=== PATIENT | female | born 1995 | race Caucasian/White ===

== ENCOUNTER → 2020-03-15 11:09 | Outpatient (BNVA) | payer BC, SELFPAY | PROVIDERS: Family Provider Nurse Practitioner Family; PCP Nurse Practitioner Family; Visit Provider Family Medicine | DX: S91.111A Laceration without foreign body of right great toe without damage to nail, initial encounter (principal); X58.XXXA Exposure to other specified factors, initial encounter | CPT/HCPCS: 73660 ==

== ENCOUNTER → 2020-12-19 14:39 | Outpatient (BNVA) | payer BC, SELFPAY | PROVIDERS: Family Provider Nurse Practitioner Family; PCP Nurse Practitioner Family; Visit Provider Nurse Practitioner Family | DX: Z20.822 Contact with and (suspected) exposure to COVID-19 (principal) | CPT/HCPCS: 87635 ==

== ENCOUNTER → 2021-02-16 16:32 | Outpatient (BNVA) | payer BC, SELFPAY | PROVIDERS: Family Provider Nurse Practitioner Family; PCP Nurse Practitioner Family; Visit Provider Family Medicine | DX: Z20.822 Contact with and (suspected) exposure to COVID-19 (principal) | CPT/HCPCS: 87635 ==

== ENCOUNTER 2021-11-11 15:22 | Inpatient (IN) | payer SELFPAY ==
[2021-11-11 15:25] VITALS: BMI 19.3
--- NOTE | 2021-11-11 15:32 | W.ED.PSYCHS ---
HPI - Psych General: Chief Complaint: Psychiatric Symptoms Stated Complaint: 96 HR HOLD Time Seen by Provider: 11/11/21 15:24 Source: patient and police Mode of arrival: other (police custody ) Limitations: no limitations History of Present Illness: Patient is a 25-year-old female who arrives to the ED today in police custody with a signed affidavit. According to the police detention attendant patient was [facility] today. She apparently was arrested for pointing a firearm at her ex- and violating an order of protection against their shared children. After she was released from [facility] the officer was speaking to her and she told him she was depressed and spoke about putting a gun in her mouth . Patient tells me she is not suicidal or homicidal. He tells me she has a meth addict and wants to get help for her methamphetamine addiction. She did reach out to a facility in [place] and stated she was told that they would have a bed for her she did not have a ride. Patient admits to marijuana use. No other drug use. Rare alcohol use. Reports her therapist in [facility] has diagnosed her with PTSD, manic/depression, and possible schizophrenia but she is not on any medications for these conditions. Exacerbating factors: drug use Context: recent drug abuse Associated symptoms: Reports depression; Deny homicidal ideation or suicidal ideation Treatments prior to arrival: none Review of Systems Const: Denies: fever(s) or chills Card: Denies: chest pain, palpitations, lightheadedness or syncope Resp: Denies: dyspnea GI: Denies: abdominal pain, nausea, vomiting or diarrhea Skin/Breast: Denies: rash Neuro: Denies: headache(s) Psych: Reports: anxiety, depression and irritability; Denies: suicidal ideation or homicidal ideation [facility] ED PFSH: Social History Smoking and tobacco status: current every day smoker cigarettes Alcohol intake: never Physical Exam Const: COMMON NORMALS: no acute distress, patient oriented x3, alert and well nourished GENERAL APPEARANCE: cooperative ORIENTATION/CONSCIOUSNESS: Yes oriented to person, Yes oriented to place and Yes oriented to time Resp: COMMON NORMALS: normal respiratory effort and clear to auscultation bilaterally AUSCULTATION: clear to auscultation bilaterally Cardio: COMMON NORMALS: regular rate and regular rhythm RATE: regular rate RHYTHM: regular rhythm Neuro: KASHIF COMA SCALE: document GCS findings [place] coma scale eye opening: Spontaneous [place] coma scale verbal response: Orientated Kashif coma scale motor response: Obey commands Kashif coma scale total score: 15 COMMON NORMALS: patient oriented x3 SENSORIUM/ORIENTATION: Yes alert, Yes oriented to person, Yes oriented to place and Yes oriented to time Psych: COMMON NORMALS: mental status grossly normal, Normal thought process present, cooperative, normal affect, speech normal and denies suicidal ideation APPEARANCE: Yes disheveled ATTITUDE: Yes calm ACTIVITY/MOTOR BEHAVIOR: Yes psychomotor agitation and Yes Avoids eye contact (attititude/behavior) SPEECH: Yes normal speech MOOD & AFFECT: Yes euthymic mood THOUGHT PROCESS: Normal thought process present THOUGHT CONTENT: Yes Normal thought content present ATTENTION/CONCENTRATION: Yes attention grossly intact MEMORY/COGNITION: Yes memory grossly intact and Yes cognition grossly intact INSIGHT: Good insight present (Psych) JUDGEMENT: Good judgement present (Psych) Skin: NARRATIVE SKIN EXAM: multiple picked sores/scabs most likely secondary to chronic methamphetamine abuse Course Consultations: Consultation #1: Dr. Beck-accepts to NPU Vital Signs: Vital signs: Vital Signs Temperature 98.1 F 11/11/21 16:23 Pulse Rate 79 11/11/21 16:23 Respiratory Rate 79 H 11/11/21 16:23 Blood Pressure 139/87 11/11/21 16:23 Pulse Oximetry 99 11/11/21 16:23 MDM - Psych Medical Decision Making Patient will be an admit to NPU per Dr. Beck. Affidavit on chart. Lab Data : 11/11/21 16:20 11/11/21 16:20 Laboratory Results WBC 8.3 10^3/uL (4.0-10.0) 11/11/21 16:20 RBC 4.51 10^6/uL (4.1-5.3) 11/11/21 16:20 Hgb 13.2 g/dL (11.5-15.3) 11/11/21 16:20 Hct 40.8 % (37.0-47.0) 11/11/21 16:20 MCV 90.5 fl (81-99) 11/11/21 16:20 MCH 29.3 pg (28.0-34.0) 11/11/21 16:20 MCHC 32.4 g/dL (30.0-36.0) 11/11/21 16:20 RDW 13.3 % (12.1-15.1) 11/11/21 16:20 Plt Count 262 10^3/cmm (130-400) 11/11/21 16:20 MPV 10.8 fL (7.4-10.4) H 11/11/21 16:20 Neut % (Auto) 61.0 % 11/11/21 16:20 Lymph % (Auto) 27.4 % 11/11/21 16:20 [place] % (Auto) 9.6 % 11/11/21 16:20 Eos % (Auto) 1.5 % 11/11/21 16:20 Baso % (Auto) 0.4 % 11/11/21 16:20 Neut # (Auto) 5.05 10^3/uL (1.8-7.7) 11/11/21 16:20 Lymph # (Auto) 2.3 10^3/uL (0.8-4.8) 11/11/21 16:20 [place] # (Auto) 0.8 10^3/uL (0.2-0.9) 11/11/21 16:20 Eos # (Auto) 0.1 10^3/uL (0.0-0.8) 11/11/21 16:20 Baso # (Auto) 0.0 10^3/uL (0.0-0.1) 11/11/21 16:20 Nucleated RBC % (auto) 0 % 11/11/21 16: Nucleated RBCs # 0.0 /100WBC 11/11/21 16:20 Sodium 136 mmol/L (136-145) 11/11/21 16:20 Potassium 3.7 mmol/L (3.5-5.1) 11/11/21 16:20 Chloride 101 mmol/L (98-107) 11/11/21 16:20 Carbon Dioxide 26 mmol/L (22-29) 11/11/21 16:20 Anion Gap 12.7 (5-19) 11/11/21 16:20 BUN 10 mg/dL (6-20) 11/11/21 16:20 Creatinine 0.8 mg/dL (0.5-0.9) 11/11/21 16:20 Glucose 98 mg/dL (65-115) 11/11/21 16:20 Calcium 8.9 mg/dL (8.5-10.5) 11/11/21 16:20 Total Bilirubin 0.4 mg/dL (0.15-1.2) 11/11/21 16:20 AST 18 U/L (0-32) 11/11/21 16:20 ALT 14 U/L (0-33) 11/11/21 16:20 Alkaline Phosphatase 71 IU/L (35-105) 11/11/21 16:20 Total Protein 6.6 g/dL (6.6-8.7) 11/11/21 16:20 Albumin 4.4 g/dL (3.5-5.2) 11/11/21 16:20 Globulin 2.2 g/dL (1.3-4.6) 11/11/21 16:20 HCG, Qual Negative (Negative) 11/11/21 16:20 Urine Opiates Screen Negative ng/mL (Negative) 11/11/21 16:03 Ur Barbiturates Screen Negative ng/mL (Negative) 11/11/21 16:03 Ur Phencyclidine Scrn Negative ng/mL (Negative) 11/11/21 16:03 Ur Amphetamines Screen Positive ng/mL (Negative) H 11/11/21 16:03 U Benzodiazepines Scrn Negative ng/mL (Negative) 11/11/21 16:03 Urine Cocaine Screen Negative ng/mL (Negative) 11/11/21 16:03 U Marijuana (THC) Screen Positive ng/mL (Negative) H 11/11/21 16:03 Discharge Plan Discharge Patient Disposition: Admitted As Inpatient Admit Provider: Denton Beck Clinical Impression: Suicidal ideation Condition: Stable Coding Level of Care Code ED Chairperson Anesthesiology for [facility] Fwd Exam Detailed
[2021-11-11] MEDS: ibuprofen 600 mg Tablet PO (16:12)
[2021-11-11 16:19] LABS: Amphetamines Screen Urine Positive (Negative); Barbiturates Screen Urine Negative (Negative); Benzodiazepines Screen Urine Negative (Negative); Cocaine Screen Urine Negative (Negative); Opiate Screen Urine Negative (Negative); PCP Screen Urine Negative (Negative); THC Screen Urine Positive (Negative)
[2021-11-11 16:23] VITALS: BP 139/87; PULSE 79; RESP 79; TEMP 36.7; O2SAT 99
[2021-11-11 16:26] LABS: Basophils % 0.4 %; Eosinophils # 0.1 10^3/uL (0.0-0.8); Eosinophils % 1.5 %; Hematocrit 40.8 % (37.0-47.0); Hemoglobin 13.2 g/dL (11.5-15.3); Lymphocytes # 2.3 10^3/uL (0.8-4.8); Lymphocytes % 27.4 %; Mean Corpuscular HGB Conc 32.4 g/dL (30.0-36.0); Mean Corpuscular Hemoglobin 29.3 pg (28.0-34.0); Mean Corpuscular Volume 90.5 fl (81-99); Mean Platelet Volume 10.8 fL (7.4-10.4); Monocytes # 0.8 10^3/uL (0.2-0.9); Monocytes % 9.6 %; Neutrophils # 5.05 10^3/uL (1.8-7.7); Nucleated Red Blood Cells % 0 %; Platelet Count 262 10^3/cmm (130-400); Red Blood Count 4.51 10^6/uL (4.1-5.3); Red Cell Distribution Width 13.3 % (12.1-15.1); White Blood Count 8.3 10^3/uL (4.0-10.0)
[2021-11-11 16:53] LABS: Alanine Aminotransferase 14 U/L (0-33); Albumin Level 4.4 g/dL (3.5-5.2); Alkaline Phosphatase 71 IU/L (35-105); Anion Gap 12.7 (5-19); Aspartate Amino Transferase 18 U/L (0-32); Blood Urea Nitrogen 10 mg/dL (6-20); Calcium 8.9 mg/dL (8.5-10.5); Carbon Dioxide 26 mmol/L (22-29); Chloride 101 mmol/L (98-107); Globulin 2.2 g/dL (1.3-4.6); Glomerular Filtration Rate 86.7 mL/min (90-130); Glucose 98 mg/dL (65-115); Osmolality Calculated 281 mOsm/kg (285-295); Potassium 3.7 mmol/L (3.5-5.1); Salicylate 0.7 mg/dL (3-10); Sodium 136 mmol/L (136-145); Total Bilirubin 0.4 mg/dL (0.15-1.2); Total Protein 6.6 g/dL (6.6-8.7)
[2021-11-11 16:54] LABS: HCG, Serum Qual Negative (Negative)
[2021-11-11 16:57] LABS: Acetaminophen < 5.0 ug/mL (10-30); Alcohol Level < 10 mg/dL (0-10)
[2021-11-11 17:20] VITALS: BP 124/75; PULSE 75; RESP 17; O2SAT 98
[2021-11-11 19:37] VITALS: BP 130/83; PULSE 77; RESP 18; TEMP 36.5; O2SAT 95
[2021-11-12 06:00] VITALS: BP 117/77; PULSE 64; RESP 14; TEMP 36.7; O2SAT 98
[2021-11-12] MEDS: OLANZapine 5 mg ODT PO (11:55)
--- NOTE | 2021-11-12 12:01 | PC.NURSE ---
Addendum entered by Flores Huggins RN 11/12/21 17:33: Zyprexa effective. Patient resting at this time. Original Note: Prn note Patient on phone and became upset. Very tearful and sobbing uncontrollably. she stated she felt as if she had no support going to rehab and that they would rather see her in halfway. She stated she wanted to see her children. Zyprexa given for severe anxiety. Patient was able to calm down and is in day room eating at this time.
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
[2021-11-12 20:22] VITALS: BP 112/77; PULSE 81; RESP 16; TEMP 36.6; O2SAT 98
[2021-11-13 06:00] VITALS: BP 110/57; PULSE 64; RESP 18; TEMP 36.6; O2SAT 98
[2021-11-13] MEDS: hyDROXYzine 25 mg Capsule 50 MG PO (09:11)
--- NOTE | 2021-11-13 12:59 | P.NPUPN_ITS ---
Subjective NPU Subjective: She says that she is doing well. She has anxiety but has been taking Zyprexa Zydis for that and feels it is beneficial. She would like to have that when she leaves. She found a rehab facility called [facility] in [place]. She has to be there by 11:00 tomorrow. She has a ride who can come and get her and take her to her apartment and get things and take her to the [facility]. Mental Status Exam MSE Comments: This is a thin 25-year-old female who appears approximately her stated age and is in no acute distress. She is dressed in hospital scrubs. She is in group at 1 PM. Her grooming is improved. She has multiple abrasions on her forehead. psychomotor activity normal. Speech is at a regular rate and rhythm, normal volume, good articulation, not pressured. Alert, oriented X3 Attention and concentration appears to be normal. Memory is intact Mood is depressed and anxious but better Affect is mildly dysphoric. Thought process is logical and goal-directed. Thought content: Denies auditory and visual hallucinations. No delusions or paranoia are noted. No current suicidal ideation, and no homicidal ideation. Fund of knowledge is average. Insight and judgment appear to be poor. Impulse control is very poor. Cognition: Patient Appearance: Disheveled/Poor Hygiene Level of Consciousness: Awake, Alert and Follows Commands Patient Cognition Impaired: No Ability to Follow Directions: Excellent Patient Orientation (long list): Person, Place and Time Comprehension Ability: No Impairment Hallucination Type: None Delusion Description: Not Present Thought Process: Appropriate Affect: Affect Description: Calm Behavior: Patient Behavior: Cooperative Speech Pattern: Clear Vitals/I&O/Wt Last Vital Signs Temp 97.9 F 11/13/21 06:00 Pulse 64 11/13/21 06:00 Resp 18 11/13/21 06:00 BP 110/57 11/13/21 06:00 Pulse Ox 98 11/13/21 06:00 Weight last 48 hrs Weight 54.431 kg Data NPU : 11/11/21 16:20 11/11/21 16:20 A&P Assessment and plan (1) PTSD (post-traumatic stress disorder): Status: Acute (2) Methamphetamine abuse: Status: Acute (3) Suicidal ideation: Status: Acute Plan This is a 25-year-old female with PTSD and methamphetamine addiction. She will use trazodone for sleep. She will find out what antidepressant her mother has responded to and we will start that tomorrow. Plan: 1. Continue current medication. 2. Continue every 15 minute checks for safety. 3. Encourage individual, group and milieu therapies. 4. Encourage sober living treatment after discharge at the highest level of care to which she is willing to commit. 5. We will monitor for safety for herself in the community prior to discharge. 6. Sent to the program for her methamphetamine addiction tomorrow Involuntary Hold Information 96 Hour Hold: 96 Hour Involuntary Admission: No Attestations NPU Medical Necessity Statement*: Inpatient hospitalization is medically necessary and the clinically appropriate intervention at this time. We will initiate medications and make changes as indicated. Coding Level of Care Code Acute Chemical Dependency Nurse for Roma Brooks Diagnoses PTSD (post-traumatic stress disorder) F43.10 Methamphetamine abuse F15.10 Suicidal ideation [id number]
[2021-11-13 14:00] VITALS: BP 105/67; PULSE 71; RESP 16; TEMP 36.4; O2SAT 100
--- NOTE | 2021-11-13 15:20 | PC.SOCIAL ---
Patient attended group.
[2021-11-13 19:32] VITALS: BP 99/60; PULSE 59; RESP 16; TEMP 36.3; O2SAT 97
[2021-11-14 06:00] VITALS: BP 124/78; PULSE 55; RESP 16; TEMP 36.9; O2SAT 98
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
[2021-11-14 07:46] VITALS: BP 124/78; PULSE 55; RESP 16; TEMP 36.9; O2SAT 98
== END 2021-11-14 08:01 | disposition home or self-care (01) | DRG 881 ==
LOC: ER 16:41 → NP 16:58
PROVIDERS: Emergency Medicine; Admitting Provider Psychiatry & Neurology Psychiatry; Emergency Provider Physician Assistant; PCP Nurse Practitioner Family; Visit Provider Psychiatry & Neurology Psychiatry
DX: F32.A Depression, unspecified (principal); R45.851 Suicidal ideations; F15.10 Other stimulant abuse, uncomplicated; F12.90 Cannabis use, unspecified, uncomplicated; F43.10 Post-traumatic stress disorder, unspecified; F17.210 Nicotine dependence, cigarettes, uncomplicated; F41.9 Anxiety disorder, unspecified
CPT/HCPCS: 36415; 80053; 80306; 80307; 84703; 85025; 97150; 97165; 99285

== ENCOUNTER → 2025-06-30 09:02 | Outpatient (BNVA) | payer MEDICAID, SELFPAY | PROVIDERS: PCP Nurse Practitioner Family; Visit Provider Family Medicine | DX: R06.02 Shortness of breath (principal) | CPT/HCPCS: 87400; 87420; 87426 ==